=== PATIENT | female | born 1945 | race Caucasian/White ===

== ENCOUNTER 2021-08-24 09:50 | Inpatient (IN) | payer MEDICARE, OTHER ==
[~2021-08-24] VITALS: Ht 175.3 cm; Wt 67.6 kg
[2021-08-24 12:00] LABS: BILIRUBIN 2+ mg/dL (NEGATIVE); BLOOD TRACE-INTACT Ery/uL (NEGATIVE); CLARITY CLEAR (CLEAR); COLOR YELLOW (YELLOW); GLUCOSE (U) NORMAL (NORMAL); LEUKOCYTES 1+ Leu/uL (NEGATIVE); NITRITE NEGATIVE (NEGATIVE); PROTEIN TRACE (LOW) mg/dL (NEGATIVE); SPECIFIC GRAVITY 1.025 (1.001-1.030); UROBILINOGEN 0.2 mg/dL (0.2-1.0)
[2021-08-24 12:02] LABS: BASOPHIL 0.2 % (0-2); BILIRUBIN - TOTAL 0.4 mg/dL (0.2-1.0); BUN/CREAT RATIO (CALC) 20.8 RATIO; CREATININE 0.48 mg/dL (0.51-0.95); EOSINOPHIL 0.1 % (0-7); GLOBULIN (CALCULATION) 3.9 g/dL; HCT 39.6 % (37.0-47.0); HGB 12.4 g/dl (12.5-16.0); LYMPHOCYTE 13.9 % (15-48); MCH 25.7 pg (25.0-31.0); MCHC 31.3 g/dL (32.0-36.0); MCV 82.2 fL (78.0-100.0); MONOCYTE 7.3 % (0-12); MPV 10.1 fL (6.0-9.5); NEUTROPHIL 77.6 % (41-80); NRBC 0; PLT 733 K/uL (150-400); POTASSIUM 2.8 mmol/L (3.5-5.1); RBC 4.82 M/uL (4.20-5.40); RDW 13.7 % (11.5-14.0); TOTAL PROTEIN 6.9 g/dL (6.4-8.2); WBC 16.7 K/uL (4.0-10.5)
[2021-08-24 12:14] LABS: BACTERIA 1+; MUCOUS TRACE
[2021-08-24 14:45] LABS: INR 1.85 (0.9-1.2); PROTHROMBIN TIME 20.5 SECONDS (11.8-13.4); PTT 34.8 SECONDS (24.4-34.7)
[2021-08-24 14:48] LABS: IRON % SATURATION 9.5 %SAT (20-50)
[2021-08-24 14:53] LABS: LACTIC ACID 1.4 mmol/L (0.4-1.9)
[2021-08-24 14:59] LABS: MAGNESIUM 1.7 mg/dL (1.8-2.4)
[2021-08-24] MEDS ORDERED: REQUIP0.25 MG PO (19:26)
[2021-08-24] MEDS ORDERED: SYNTHROID25 MCG PO (19:27)
[2021-08-25 07:56] LABS: BASOPHIL 0.2 % (0-2); EOSINOPHIL 0.3 % (0-7); HCT 34.7 % (37.0-47.0); HGB 10.9 g/dl (12.5-16.0); LYMPHOCYTE 21.2 % (15-48); MCH 25.5 pg (25.0-31.0); MCHC 31.4 g/dL (32.0-36.0); MCV 81.3 fL (78.0-100.0); MONOCYTE 10.9 % (0-12); NEUTROPHIL 66.7 % (41-80); NRBC 0; PLT 525 K/uL (150-400); RBC 4.27 M/uL (4.20-5.40); RDW 13.7 % (11.5-14.0); WBC 14.5 K/uL (4.0-10.5)
[2021-08-25 08:03] LABS: CREATININE 0.45 mg/dL (0.51-0.95); MAGNESIUM 1.9 mg/dL (1.8-2.4); PHOSPHORUS 1.1 mg/dL (2.6-4.7); POTASSIUM 2.6 mmol/L (3.5-5.1)
[2021-08-26 06:39] LABS: BASOPHIL 0.4 % (0-2); EOSINOPHIL 0.6 % (0-7); HCT 34.2 % (37.0-47.0); HGB 10.9 g/dl (12.5-16.0); MCH 25.8 pg (25.0-31.0); MCHC 31.9 g/dL (32.0-36.0); MONOCYTE 10.1 % (0-12); NEUTROPHIL 67.7 % (41-80); NRBC 0; PLT 456 K/uL (150-400); RBC 4.22 M/uL (4.20-5.40); RDW 13.6 % (11.5-14.0)
[2021-08-26 07:02] LABS: BUN/CREAT RATIO (CALC) 7.9 RATIO; CREATININE 0.38 mg/dL (0.51-0.95); PHOSPHORUS 1.3 mg/dL (2.6-4.7)
[2021-08-26 07:09] LABS: MAGNESIUM 1.3 mg/dL (1.8-2.4)
--- NOTE | 2021-08-26 12:51 | NUR ---
MET WITH PT AND SON, SANDHYA. PT IS IN AGREEMENT TO HAVE [facility] HH. [facility] DELIVER[facility] A RW AND 07/12 PLEASE CALL [facility] IF PT D/C OVER THE WEEKEND.
[2021-08-27 06:25] LABS: BASOPHIL 0.5 % (0-2); HCT 38.5 % (37.0-47.0); LYMPHOCYTE 25.9 % (15-48); MCH 25.5 pg (25.0-31.0); MCHC 31.2 g/dL (32.0-36.0); MCV 81.9 fL (78.0-100.0); MONOCYTE 11.1 % (0-12); MPV 9.8 fL (6.0-9.5); NEUTROPHIL 59.7 % (41-80); NRBC 0; PLT 513 K/uL (150-400); RDW 13.8 % (11.5-14.0); WBC 9.6 K/uL (4.0-10.5)
[2021-08-27 06:43] LABS: BUN/CREAT RATIO (CALC) 3.9 RATIO; CREATININE 0.51 mg/dL (0.51-0.95); PHOSPHORUS 2.5 mg/dL (2.6-4.7)
[2021-08-27 06:59] LABS: MAGNESIUM 2.1 mg/dL (1.8-2.4)
[2021-08-27] MEDS ORDERED: PROTONIX 40MG T40 MG PO (11:44)
[2021-08-27] MEDS ORDERED: VENLAFAXINE HCL75 M2 PO (11:44)
[2021-08-27] MEDS ORDERED: KLOR-CON 1010 MEQ PO (11:44)
[2021-08-27] MEDS ORDERED: ONDANSETRON HCL4 MG PO (11:44)
[2021-08-27] MEDS ORDERED: SYNTHROID100 MCG PO (11:44)
[2021-08-27] MEDS ORDERED: ONE DAILY WOME1 EAC1 PO (11:44)
[2021-08-27] MEDS ORDERED: LOPRESSOR25 MG PO (11:47)
== END 2021-08-27 16:54 | disposition home health service (06) | DRG 384 ==
LOC: FER 09:50 → FMS 16:54
PROVIDERS: Emergency Medicine; ADMIT Internal Medicine
DX: K27.9 Peptic ulcer, site unspecified, unspecified as acute or chronic, without hemorrhage or perforation (principal); E87.2 Acidosis; N32.2 Vesical fistula, not elsewhere classified; Z20.822 Contact with and (suspected) exposure to COVID-19; R63.0 Anorexia; E83.39 Other disorders of phosphorus metabolism; E86.0 Dehydration; E83.42 Hypomagnesemia; E87.6 Hypokalemia; D50.9 Iron deficiency anemia, unspecified; E63.9 Nutritional deficiency, unspecified; R73.9 Hyperglycemia, unspecified; R63.4 Abnormal weight loss; G62.9 Polyneuropathy, unspecified; I10 Essential (primary) hypertension; E89.0 Postprocedural hypothyroidism; F32.9 Major depressive disorder, single episode, unspecified; G25.81 Restless legs syndrome; Z68.22 Body mass index [BMI] 22.0-22.9, adult; Z85.850 Personal history of malignant neoplasm of thyroid; Z79.899 Other long term (current) drug therapy; Z91.011 Allergy to milk products; Z88.8 Allergy status to other drugs, medicaments and biological substances
CPT/HCPCS: 36415; 71260; 78264; 80048; 80053; 81001; 82150; 83036; 83540; 83550; 83605; 83690; 83735; 83880; 84100; 84145; 84439; 84443; 84484; 85025; 85610; 85730; 87088; 93005; 97162; 97165; 97530; 97530-GP; A9541; C9113; J0696; J2405; J2765; J2916; J3475; J3480; J7030; J7050; Q9967; U0002